=== PATIENT | male | born 1965 | race African-American/Black ===

== ENCOUNTER 2017-02-18 06:31 | Emergency (ER) | payer MEDICAID ==
[~2017-02-18] VITALS: Ht 185.4 cm; Wt 133.8 kg
[2017-02-18 09:19] VITALS: BP 122/95
== END 2017-02-18 10:31 | disposition home or self-care (01) ==
LOC: ER 06:32
DX: S39.012A Strain of muscle, fascia and tendon of lower back, initial encounter (principal); S40.011A Contusion of right shoulder, initial encounter; M62.838 Other muscle spasm; V49.49XA Driver injured in collision with other motor vehicles in traffic accident, initial encounter; Y93.89 Activity, other specified; Y99.8 Other external cause status; Y92.410 Unspecified street and highway as the place of occurrence of the external cause
CPT/HCPCS: 72040; 72100; 73030